=== PATIENT | male | born 1975 | race African-American/Black ===

== ENCOUNTER → 2017-05-23 | Outpatient (CLI) | payer OTHER ==
[2017-05-23 10:56] LABS: APPEARANCE,URINE CLEAR; BILIRUBIN,URINE NEGATIVE (NEGATIVE); COLOR,URINE YELLOW; GLUCOSE, URINE NEGATIVE (NEGATIVE); KETONES,URINE NEGATIVE (NEGATIVE); LEUKOCYTE ESTERASE,URINE NEGATIVE (NEGATIVE); NITRITE,URINE NEGATIVE (NEGATIVE); PROTEIN,URINE NEGATIVE (NEGATIVE); URINE SPECIFIC GRAVITY 1.027; UROBILINOGEN,URINE NEGATIVE mg/dL (<2.0)
[2017-05-23 11:09] LABS: ABSOLUTE BASOPHILS # (AUTO) 0.1 10^3/uL (0.0-0.2); ABSOLUTE EOSINOPHILS # (AUTO) 0.3 10^3/uL (0.0-0.6); ABSOLUTE LYMPHOCYTES (AUTO) 2.4 10^3/uL (0.5-4.7); ABSOLUTE MONOCYTES (AUTO) 0.6 10^3/uL (0.1-1.4); ABSOLUTE NEUT (AUTO) 3.2 10^3/uL (1.7-8.2); BASOPHILS % (AUTO) 1.3 % (0-2); HEMATOCRIT 40.3 % (37.9-51.0); HEMOGLOBIN 13.8 g/dL (13.5-17.0); LYMPHOCYTES % (AUTO) 36.2 % (13-45); MEAN CORPUSCULAR HEMOGLOBIN 30.3 pg (27.0-33.4); MEAN CORPUSCULAR HGB CONC 34.1 g/dL (32.0-36.0); MEAN CORPUSCULAR VOLUME 89 fl (80-97); MONOCYTES % (AUTO) 8.9 % (3-13); PLATELET COUNT 262 10^3/uL (150-450); RED BLOOD COUNT 4.55 10^6/uL (4.35-5.55); RED CELL DISTRIBUTION WIDTH 12.5 % (11.5-14.0); SEGMENTED NEUTROPHILS % (AUTO) 48.6 % (42-78); TOTAL CELLS COUNTED % (AUTO) 100 %; WHITE BLOOD COUNT 6.7 10^3/uL (4.0-10.5)
[2017-05-23 11:13] LABS: INTERNATIONAL RATION (INR) 0.92
[2017-05-23 11:14] LABS: PARTIAL THROMBOPLASTIN TIME 28.7 SEC (23.5-35.8)
== END ==
LOC: OD 10:17
PROVIDERS: ATTEND Pain Medicine Interventional Pain Medicine
DX: Z01.812 Encounter for preprocedural laboratory examination (principal); M54.16 Radiculopathy, lumbar region
CPT/HCPCS: 36415; 81001; 85025; 85610; 85730

== ENCOUNTER 2017-10-18 06:04 | Day surgery (SDC) | payer OTHER ==
--- NOTE | 2017-10-11 09:51 | RADIOLOGY REPORT (SQ) ---
EXAM DESCRIPTION: CHEST PA/LATERAL COMPLETED DATE/TIME: 10/11/2017 9:43 am REASON FOR STUDY: PRE OP COMPARISON: None. EXAM PARAMETERS: NUMBER OF VIEWS: two views TECHNIQUE: Digital Frontal and Lateral radiographic views of the chest acquired. RADIATION DOSE: NA LIMITATIONS: none FINDINGS: LUNGS AND PLEURA: No opacities, masses or pneumothorax. No pleural effusion. MEDIASTINUM AND HILAR STRUCTURES: No masses or contour abnormalities. HEART AND VASCULAR STRUCTURES: Heart normal size. No evidence for failure. BONES: No acute findings. HARDWARE: None in the chest. OTHER: No other significant finding. IMPRESSION: NO SIGNIFICANT RADIOGRAPHIC FINDING IN THE CHEST. TECHNICAL DOCUMENTATION: JOB ID: [id number] [employer]- All Rights Reserved Reading location - IP/workstation name: [email or web address]
--- NOTE | 2017-10-11 09:59 | EKG REPORT ---
SEVERITY:- NORMAL ECG - SINUS RHYTHM ST ELEV, PROBABLE NORMAL EARLY REPOL PATTERN : Confirmed by: Marcella Goetz MD 11-Oct-2017 09:58:41
[~2017-10-18 06:04] MED LIST: CEFAZOLIN 1 GM/D5W RTU 1 GM/50 ML RTUPB IV PRN; LACTATED RINGERS 1000 ML IV PRN; LIDOCAINE 0.5% INJ-PF (5 MG/ML) 50 ML SDV SUBCUT PRN
[2017-10-18] MEDS ORDERED: ONDANSETRON HCL INJ/PF 4 MG/2 ML SDV ONE (06:24)
[2017-10-18] MEDS ORDERED: LIDOCAINE 2% INJ-PF (20 MG/ML) 10 ML AMPUL ONE (06:24)
[2017-10-18] MEDS ORDERED: FENTANYL CITRATE INJ/PF 100 MCG/2 ML AMPUL ONE ×2 (06:24→10:17)
[2017-10-18] MEDS ORDERED: MIDAZOLAM 2 MG/2 ML INJ ONE (06:24)
[2017-10-18] MEDS ORDERED: BUPIVACAINE HCL 0.25% /EPINEPHRINE INJ/PF 30 ML SDV ONE (06:25)
[2017-10-18] MEDS ORDERED: LIDOCAINE 1% INJ-PF (10 MG/ML) 30 ML SDV ONE ×2 (06:25→08:29)
[2017-10-18] MEDS ORDERED: PROPOFOL INJ 200 MG/20 ML VIAL IV ONE (06:25)
[2017-10-18] MEDS ORDERED: SODIUM BICARBONATE 8.4% INJ 50 MEQ/50 ML DISP.SYRIN ONE (07:42)
[2017-10-18] MEDS ORDERED: DIPHENHYDRAMINE HCL 50 MG/ML VIAL IV PRN ×2 (08:11→08:12)
[2017-10-18] MEDS ORDERED: FENTANYL CITRATE INJ/PF 100 MCG/2 ML AMPUL IV PRN ×6 (08:11→08:12)
[2017-10-18] MEDS ORDERED: PROMETHAZINE HCL INJ 25 MG/1 ML VIAL IV PRN ×4 (08:11→08:12)
[2017-10-18] MEDS ORDERED: MEPERIDINE HCL/PF INJ 25 MG/1 ML DISP.SYRIN IV PRN ×2 (08:11→08:12)
[2017-10-18] MEDS ORDERED: MORPHINE SULFATE 10 MG/ML INJ IV PRN ×2 (08:11→08:12)
[2017-10-18] MEDS ORDERED: ONDANSETRON HCL INJ/PF 4 MG/2 ML SDV IV PRN ×2 (08:12→10:06)
[2017-10-18] MEDS ORDERED: CEFAZOLIN INJ 1 GM VIAL ONE (09:58)
[2017-10-18] MEDS ORDERED: OXYCODONE-ACETAMINOPHEN 5-325 MG TABLET PO PRN (10:06)
--- NOTE | 2017-10-18 11:22 | RADIOLOGY REPORT (SQ) ---
EXAM DESCRIPTION: T SPINE AP/LAT; NO CHG FLUORO COMPLETED DATE/TIME: 10/18/2017 10:42 am REASON FOR STUDY: SPINAL CORD STIMULATOR G89.4 CHRONIC PAIN SYNDROME COMPARISON: Preop chest 10/11/2017 FLUOROSCOPY TIME: 3.9 minutes 20 digital images saved to PACS. TECHNIQUE: Intra-operative images acquired during surgical procedure to evaluate progress. NUMBER OF IMAGES: 20 digital radiographic images LIMITATIONS: None. FINDINGS: Intra procedural imaging and fluoro during placement of the spinal cord stimulator with el ectrodes over the lower thoracic spine. Please see the operative report for further details IMPRESSION: Intra procedural imaging and fluoro COMMENT: Quality ID [id number]: Final reports for procedures using fluoroscopy that document radiation exp osure indices, or exposure time and number of fluorographic images (if radiation exposure indices are not available) Please consult full operative report of the attending physician for description of the procedure. TECHNICAL DOCUMENTATION: JOB ID: [id number] [employer]- All Rights Reserved Reading location - IP/workstation name: [id number]
--- NOTE | 2017-10-18 11:22 | RADIOLOGY REPORT (SQ) ---
EXAM DESCRIPTION: T SPINE AP/LAT; NO CHG FLUORO COMPLETED DATE/TIME: 10/18/2017 10:42 am REASON FOR STUDY: SPINAL CORD STIMULATOR G89.4 CHRONIC PAIN SYNDROME COMPARISON: Preop chest 10/11/2017 FLUOROSCOPY TIME: 3.9 minutes 20 digital images saved to PACS. TECHNIQUE: Intra-operative images acquired during surgical procedure to evaluate progress. NUMBER OF IMAGES: 20 digital radiographic images LIMITATIONS: None. FINDINGS: Intra procedural imaging and fluoro during placement of the spinal cord stimulator with el ectrodes over the lower thoracic spine. Please see the operative report for further details IMPRESSION: Intra procedural imaging and fluoro COMMENT: Quality ID [id number]: Final reports for procedures using fluoroscopy that document radiation exp osure indices, or exposure time and number of fluorographic images (if radiation exposure indices are not available) Please consult full operative report of the attending physician for description of the procedure. TECHNICAL DOCUMENTATION: JOB ID: [id number] [employer] All Rights Reserved Reading location - IP/workstation name: [email or web address]
--- NOTE | 2017-10-18 11:46 | OPERATIVE REPORT E ---
Operative Report NAME: STACY POTTER : 1975 AGE: 42Y DATE OF SURGERY: 10/18/2017 ROOM: PREOPERATIVE DIAGNOSES: 1. Lumbar radiculopathy. 2. Chronic pain. POSTOPERATIVE DIAGNOSES: 1. Lumbar radiculopathy. 2. Chronic pain. PROCEDURES PERFORMED: Implantation of spinal cord stimulator and implantable pulse generator. [employer] system used with dual octrodes. PRIMARY SURGEON: Mercy Soares M.D. TICKET SCHEDULER: Dajuan Nichole M.D. INTRAVENOUS FLUIDS: One liter of balanced crystalloid solution. ESTIMATED BLOOD LOSS: 10 mL. PERIOPERATIVE ANTIBIOTICS: Ancef 1 gram given prior to incision. ALLERGIES: MAC with sedation. OPERATIVE FINDINGS: Two octrodes were placed in the posterior epidural space spanning the mid body of T7 to the bottom of T8. SPECIMENS REMOVED: None. INDICATIONS: The patient is a 42-year-old male who has had longstanding low back pain and lumbar radiculopathy bilaterally. The patient underwent successful trial of spinal cord stimulator percutaneous device with excellent results. He opted to proceed with permanent implantation. OPERATIVE NOTE: Informed consent was obtained from the patient. All risks and benefits were described in detail, including, but not limited to, bleeding, bruising, infection, injury to nerves, arteries, veins, loss of bowel or bladder function, paralysis, and potentially even . The patient expressed understanding and agreed to proceed. The patient was accompanied by Anesthesia to the operative suite. He was placed in prone position and all pressure points were checked and padded. Standard ASA lines and monitors were applied. The patient was prepped and draped in sterile fashion using chlorhexidine gluconate solution and an Ioban drape. A fluoroscopic C-arm was also draped sterilely into the field. Using AP and lateral fluoroscopy, the site for planned entry was marked at the T12-L1 interspace. Skin was marked for planned incision site in the midline and also over the left buttock. A time-out procedure was performed as per [facility] standards. Subsequently the skin was anesthetized with 1% buffered lidocaine and deeper tissues were then infiltrated using a 25-gauge needle and 0.25% Marcaine with 1:200,000 epinephrine. An incision was made using a 15 blade scalpel in the midline. Subsequently blunt and Bovie dissection was utilized to expose the prevertebral fascia. Once this had been completed and hemostasis was obtained, AP and lateral fluoroscopic guidance was utilized to numb a tract for insertion of leads. A 3.5 inch, 25-gauge spinal needle was used to anesthetize the planned Tuohy needle tract with 1% lidocaine. Subsequently a 16-gauge Tuohy needle provided by the [employer] kit was advanced under intermittent AP and lateral fluoroscopic guidance to the posterior epidural space of T12-L1. Once loss of resistance was obtained to normal saline, the lead provided in the [employer] kit, which was an octrode lead, was advanced through the needle with ease. Posterior epidural placement was confirmed using lateral fluoroscopy. An additional lead was placed in opposite paramedian approach to the posterior epidural space. Both leads were subsequently advanced to the mid body of T7 and again lateral fluoroscopy used to confirm posterior epidural placement. The octrodes spanned from mid body of T7 to the bottom of T8. At this juncture the leads were attached to the IPG available with our representative government relations in the room. The patient was awakened from anesthesia and the leads were tested. Impedances were found to be excellent and the patient had excellent coverage of all painful areas with the leads in their placement. Attention was then turned to the left buttock pocket where the skin was anesthetized with 1% lidocaine and deeper tissues infiltrated with 0.25% bupivacaine. A 15 blade scalpel was utilized to create a pocket over the left buttock and adequate hemostasis was ensured. Attention was then turned back to the midline where a pursestring suture was placed around both needles using 0 Mersilene and an additional stay suture placed further caudad. The needles were removed under continuous fluoroscopic guidance to ensure no lead migration. Subsequently anchors were advanced over the leads and the pursestring suture tied. The pursestring suture was then affixed to the lead anchors as the stay suture was also tied to the lead anchor. Following this a hex wrench was utilized to tighten the anchor around the lead. This was performed in the exact same fashion on the opposite lead. Both leads were found to be in good position and anchored securely. There had been no migration as noted on final AP and lateral fluoroscopic views. A tract was then anesthetized between the midline and the buttock incision site with 1% lidocaine using a 3.5 inch spinal needle. The tunnel device provided by the [employer] representative government relations was utilized to tunnel a tract between the buttock and the midline. The leads were then advanced through the tunneled tract to the buttock. The lead loops were affixed using 3-0 Vicryl. The leads were then attached to the implantable pulse generator and impedances were checked and found to be excellent. The leads were secured also using a hex wrench. Copious irrigation was then utilized along both incisions with dilute Betadine solution. Subsequently closure ensued. The midline of the back was closed in interrupted fashion using 3-0 Vicryl sutures in dual layers. The skin was then closed with anel. The buttock incision was closed in single-layer fashion with interrupted 3-0 Vicryl, and the skin was closed with Dermabond tape and glue. The skin was then infiltrated with local anesthetic prior to dressing application. The patient had the following implanted: This is the Precision Montage MRI Conditional pulse generator from [employer]. The patient was accompanied to the PACU in stable condition. He will be discharged to home and will have followup with [facility] within 24 hours. DICTATING PHYSICIAN: MERCY SOARES M.D. [id number] PHY#: [id number] ID: [id number] JOB#: [id number] ACCT: [id number] cc:MERCY SOARES M.D. > MTDD
[2017-10-18 12:42] VITALS: BP 131/91
== END 2017-10-18 11:45 | disposition home or self-care (01) ==
LOC: OROUT 06:04
PROVIDERS: ATTEND Pain Medicine Interventional Pain Medicine
DX: G89.4 Chronic pain syndrome (principal); M54.16 Radiculopathy, lumbar region; M62.830 Muscle spasm of back; M47.816 Spondylosis without myelopathy or radiculopathy, lumbar region; M51.36 Other intervertebral disc degeneration, lumbar region; D64.9 Anemia, unspecified; I10 Essential (primary) hypertension; K21.9 Gastro-esophageal reflux disease without esophagitis; Z79.1 Long term (current) use of non-steroidal anti-inflammatories (NSAID); Z79.899 Other long term (current) drug therapy; Z79.891 Long term (current) use of opiate analgesic
CPT/HCPCS: 93005; 71046; 72070; 93010; 63685; 63650; C1820; C1713; J2250; J3490 ×4; J0690 ×2; J3010; J2405; J2704; 1936; 36415